=== PATIENT | female | born 1965 | race Caucasian/White ===

== ENCOUNTER 2018-07-18 13:32 | Outpatient (CLI) | payer BC ==
--- NOTE | 2018-07-18 15:54 | MRI ---
LEFT KNEE MRI WITHOUT IV CONTRAST: 07/18/18 HISTORY: Left knee pain M23.602, possible ligament tear, chronic knee pain for several months. FINDINGS: Multiplanar and multisequence MR examination of the left knee is performed. There is some minimal foc al cartilage loss and slightly altered signal involving the medial patellar facet cartilage, evidence for some chondromalacia patella. No significant abnormal joint effusion. There is a borderline disco id meniscus with a very thin discoid component. The anterior and posterior cruciate ligaments, collat eral ligament complexes, and quadriceps and patellar tendons appear intact. There is some minimal pre patellar superficial fat stranding, nonspecific, but possibly a very mild prepatellar bursitis. No ac [place] osteochondral defect. No significant abnormal marrow signal. No evidence for an acute meniscal te ar. IMPRESSION: Mild medial patellar chondromalacia. Borderline discoid lateral meniscus with a very thin discoid com ponent without for acute meniscal tear. Subtle nonspecific superficial prepatellar fat stranding whic h could possibly be seen with very mild prepatellar bursitis. No evidence for other significant acute internal derangement. POS: [facility]
--- NOTE | 2018-07-18 15:55 | MMO ---
BILATERAL DIGITAL SCREENING MAMMOGRAMS: HISTORY: This 53-year-old female presents for digital screening mammography. COMPARISON: 08/31/2016, 10/17/2015, 02/25/2014. This patient's mammogram is interpreted with the assistance of computer-aided detection. FINDINGS: Scattered areas of fibroglandular density are noted bilaterally. There is stable global asymmetry in the outer upper right breast. There are a few typically benign calcifications. No direct or indire ct evidence of malignancy. IMPRESSION: BI-RADS category 2, benign findings. Continued routine screening. BIRADS 2: Benign Finding(s) Routine annual screening mammography (for women over age 40) POS: [facility]
== END 2018-07-18 13:33 | disposition home or self-care (01) ==
LOC: SCSMAMMO 13:32
PROVIDERS: ATTEND Family Medicine
DX: Z12.31 Encounter for screening mammogram for malignant neoplasm of breast (principal); M25.562 Pain in left knee; M22.42 Chondromalacia patellae, left knee
CPT/HCPCS: 77067

== ENCOUNTER 2020-12-30 08:24 | Outpatient (CLI) | payer BC | END 2020-12-30 08:25 | disposition home or self-care (01) | LOC: BICMAMMO 08:24 | PROVIDERS: ATTEND Family Medicine | DX: Z12.31 Encounter for screening mammogram for malignant neoplasm of breast (principal); Z13.820 Encounter for screening for osteoporosis; Z80.3 Family history of malignant neoplasm of breast | CPT/HCPCS: 77063; 77067; 77080 ==